=== PATIENT | female | born 1935 | race Caucasian/White ===

== ENCOUNTER → 2017-02-19 | Day surgery (SDC) | payer MEDICARE, OTHER ==
[~2017-02-19] VITALS: Ht 152.4 cm; Wt 66.8 kg
[~2017-02-19] MED LIST: ALEN70TA51 PO; ASPI-973 PO; ATOR20TA PO; ATOR40TA69 PO; CHOL10008 PO; GABA-502 PO; GLIM4TAB2 PO; HYDR-4003 PO; INSU100I13 SUBQ; LISI-567 PO; METF500T4 PO; METH5TAB5 PO; OMEP20TA86 PO; TOP100 PO; VIT1CAPS8 PO; VITA200C61 PO; Zoledronic Acid 5 mg/100 mL Premix IV ONE
[2017-02-19 12:47] VITALS: BP 171/91; PULSE 69; RESP 18; O2SAT 96
[2017-02-19 13:07] VITALS: BP 160/74; PULSE 69; RESP 18; O2SAT 96
--- NOTE | 2017-02-19 13:24 | NUR ---
reclast infusion pt tolerated well; no adverse s/s edu/care note re: med provided to pt and pts daughter
== END | disposition home or self-care (01) ==
LOC: MOCO 12:00
PROVIDERS: ATTEND Nurse Practitioner
DX: M81.0 Age-related osteoporosis without current pathological fracture (principal)
CPT/HCPCS: 96365; J3489